=== PATIENT | male | born 1980 | race Caucasian/White ===

== ENCOUNTER 2024-05-24 13:13 | Emergency (ER) | payer SELFPAY ==
[~2024-05-24] VITALS: Ht 182.8 cm; Wt 96.2 kg
[~2024-05-24 13:13] MED LIST: LIDEX0.05% T; PREDNICOT20 MG PO
[2024-05-24] MEDS ORDERED: Tetracaine Hydrochloride 0.5% 4 ML BOT OPH ONE (13:25)
[2024-05-24] MEDS ORDERED: Ciprofloxacin Hydrochloride 0.3% OPHTHLAMIC BOTTLE OPH ONE (13:30)
[2024-05-24] MEDS ORDERED: Tdap Vaccine 0.5 ML SYR (Adult Vaccine) IM ONE (13:40)
== END 2024-05-24 14:02 | disposition home or self-care (01) ==
LOC: ED 13:13
DX: T15.81XA Foreign body in other and multiple parts of external eye, right eye, initial encounter (principal); Z91.013 Allergy to seafood; Z91.040 Latex allergy status; W44.8XXA Other foreign body entering into or through a natural orifice, initial encounter; Y93.89 Activity, other specified; Y92.009 Unspecified place in unspecified non-institutional (private) residence as the place of occurrence of the external cause; Y99.8 Other external cause status